=== PATIENT | female | born 1955 | race Caucasian/White ===

== ENCOUNTER 2020-10-12 03:53 | Inpatient (IN) | payer OTHER, SELFPAY ==
[~2020-10-12] VITALS: Ht 162.6 cm; Wt 83.1 kg
[2020-10-12 03:53] VITALS: BP_SYST 150
[2020-10-12] MEDS ORDERED: KETOROLAC TROMETHAMINE 60 MG/2 ML VIAL IM ONE (04:15)
[2020-10-12 04:32] LABS: BILIRUBIN,URINE NEGATIVE (NEGATIVE); BLOOD, URINE NEGATIVE (NEGATIVE); CLARITY/URINE CLEAR (CLEAR); COLOR,URINE YELLOW (YELLOW); GLUCOSE,URINE NEGATIVE (NEGATIVE); KETONES,URINE NEGATIVE (NEGATIVE); LEUKOCYTE ESTERASE ,URINE NEGATIVE (NEGATIVE); NITRITE, URINE NEGATIVE (NEGATIVE); PH,URINE 6.5 (5.0-8.0); PROTEIN URINE NEGATIVE (NEGATIVE); UROBILINOGEN,URINE 0.2 (0.2-1.0)
[2020-10-12] MEDS ORDERED: MORPHINE 4 MG/ML INJ. SYRINGE IVP ONE (05:00)
[2020-10-12 05:05] LABS: BASOPHILS % (AUTO) 0.4 % (0.0-2.0); EOSINOPHILS # (AUTO) 0.1 K/uL (0.0-0.4); EOSINOPHILS % (AUTO) 1.4 % (0.0-4.0); HEMATOCRIT 42.1 % (36-48); LYMPHOCYTES # (AUTO) 2.4 K/uL (1.0-5.5); LYMPHOCYTES % (AUTO) 27.3 % (20.5-51.5); MEAN CORPUSCULAR HEMOGLOBIN 32 pg (27-31); MEAN CORPUSCULAR HGB CONC 33 % (32-36); MEAN CORPUSCULAR VOLUME 95 fL (79.0-98.0); MONOCYTES # (AUTO) 0.6 K/uL (0.0-1.0); NEUTROPHILS # (AUTO) 5.6 K/uL (1.8-7.7); NEUTROPHILS % (AUTO) 63.9 % (40.0-70.0); PLATELET COUNT (AUTO) 256 K/uL (130-430); RED BLOOD CELL COUNT(AUTO) 4.43 MIL/uL (4.2-6.2); RED CELL DISTRIBUTION WIDTH 12.9 % (9.0-15.0); WHITE BLOOD COUNT (AUTO) 8.8 K/uL (4.8-10.8)
[2020-10-12 05:12] LABS: CALCIUM 8.8 mg/dL (8.4-11.0); CREATININE 0.75 mg/dL (0.55-1.30)
[2020-10-12 05:18] LABS: ALBUMIN 3.4 g/dL (3.4-4.8); TOTAL BILIRUBIN 0.4 mg/dL (0.0-1.0)
[2020-10-12] MEDS ORDERED: ACETAMINOPHEN 325 MG TABLET PO PRN (06:30)
[2020-10-12] MEDS ORDERED: ONDANSETRON HCL 4 MG/2 ML VIAL IVP PRN (06:30)
[2020-10-12 08:05] VITALS: BP_SYST 145
[2020-10-12 12:29] VITALS: BP_SYST 142
[2020-10-12] MEDS: MORPHINE 4 MG/ML INJ. SYRINGE IVP PRN ×3 (12:48→23:59)
[2020-10-12] MEDS ORDERED: IBUP-2101 (13:22)
[2020-10-12 16:32] VITALS: BP_SYST 140
[2020-10-12 20:00] VITALS: BP_SYST 115
[2020-10-12] MEDS: methocarbamoL 500 MG TABLET PO SCH (21:00)
[2020-10-12 23:56] VITALS: BP_SYST 135
[2020-10-13 08:30] VITALS: BP_SYST 130
[2020-10-13] MEDS: methocarbamoL 500 MG TABLET PO SCH ×3 (10:09→20:43)
[2020-10-13] MEDS: MORPHINE 4 MG/ML INJ. SYRINGE IVP PRN (10:10)
[2020-10-13 12:00] VITALS: BP_SYST 113
[2020-10-13 15:39] VITALS: BP_SYST 98
[2020-10-13] MEDS ORDERED: MAGNESIUM OXIDE 400 MG TABLET PO ONE (16:15)
[2020-10-13] MEDS ORDERED: CHOLECALCIFEROL (VITAMIN D3) 5,000 UNIT TABLET PO ONE (16:15)
[2020-10-13 20:00] VITALS: BP_SYST 110
[2020-10-14 01:07] VITALS: BP_SYST 97
[2020-10-14] MEDS: methocarbamoL 500 MG TABLET PO SCH ×5 (01:26→21:30)
[2020-10-14 08:37] VITALS: BP_SYST 126
[2020-10-14] MEDS: MAGNESIUM OXIDE 400 MG TABLET PO SCH ×2 (08:37→21:29)
[2020-10-14] MEDS: CHOLECALCIFEROL (VITAMIN D3) 5,000 UNIT TABLET PO SCH (08:37)
[2020-10-14] MEDS: HYDROcodone/ACETAMIN 5-325 MG TAB (NORCO/ VICODIN) PO PRN ×2 (08:41→16:18)
[2020-10-14 12:34] VITALS: BP_SYST 127
[2020-10-14] MEDS ORDERED: TRAM50TA2 PO (14:01)
[2020-10-14] MEDS ORDERED: METH-364 PO (14:03)
[2020-10-14] MEDS ORDERED: MILK OF MAGNESIA 30 ML UDC PO PRN (14:15)
[2020-10-14 16:59] VITALS: BP_SYST 125
[2020-10-14 20:00] VITALS: BP_SYST 127
[2020-10-14] MEDS: DOCUSATE SODIUM 250 MG CAPSULE PO SCH (21:45)
[2020-10-14] MEDS ORDERED: BISACODYL 10 MG/SUPPOSITORY RC PRN (21:45)
[2020-10-14 23:47] VITALS: BP_SYST 115
[2020-10-15 09:04] VITALS: BP_SYST 116
[2020-10-15] MEDS: methocarbamoL 500 MG TABLET PO SCH (09:06)
[2020-10-15] MEDS: DOCUSATE SODIUM 250 MG CAPSULE PO SCH (09:06)
[2020-10-15] MEDS: CHOLECALCIFEROL (VITAMIN D3) 5,000 UNIT TABLET PO SCH (09:06)
[2020-10-15] MEDS: MAGNESIUM OXIDE 400 MG TABLET PO SCH (09:06)
[2020-10-15 09:47] VITALS: BP_SYST 120
[2020-10-15] MEDS ORDERED: MILK OF MAGNESIA 30 ML UDC PO PRN (10:15)
[2020-10-15] MEDS: HYDROcodone/ACETAMIN 5-325 MG TAB (NORCO/ VICODIN) PO PRN (11:03)
[2020-10-15 11:41] VITALS: BP_SYST 138
== END 2020-10-15 12:25 | disposition home health service (06) | DRG 552 ==
LOC: SED 03:53 → SMU 06:25
PROVIDERS: ADMIT Internal Medicine; ATTEND Internal Medicine
DX: M54.42 Lumbago with sciatica, left side (principal); M48.56XA Collapsed vertebra, not elsewhere classified, lumbar region, initial encounter for fracture; E66.9 Obesity, unspecified; Z20.822 Contact with and (suspected) exposure to COVID-19; M51.26 Other intervertebral disc displacement, lumbar region; M47.896 Other spondylosis, lumbar region; E59 Dietary selenium deficiency; K59.00 Constipation, unspecified; Z87.442 Personal history of urinary calculi; Z68.31 Body mass index [BMI] 31.0-31.9, adult; E55.9 Vitamin D deficiency, unspecified
CPT/HCPCS: 36415; 72131; 72148; 76376; 80053; 81003; 85025; 96372; 96374; 97116-GP; 97530-GP; J1885; J2270; J2405